=== PATIENT | female | born 1975 | race Hispanic/Latino ===

== ENCOUNTER 2019-03-08 18:47 | Emergency (ER) | payer OTHER ==
[~2019-03-08] VITALS: Ht 170.2 cm; Wt 72.6 kg
[2019-03-08] MEDS ORDERED: NAPROSYN500 MG PO (19:44)
[2019-03-08] MEDS ORDERED: ULTRAM50 MG PO (19:44)
[2019-03-08] MEDS ORDERED: HYDROCODONE/APAP 5MG-325MG TAB ONE (20:07)
[2019-03-08] MEDS ORDERED: HYDROCODONE/APAP 5MG-325MG TAB PO ONE (20:15)
--- NOTE | 2019-03-08 20:39 | Diagnostic Imaging Report ---
X-ray left shoulder 3 views HISTORY: Pain. Swelling COMPARISON: None available. FINDINGS: Bones: No acute displaced fracture. Joints: The joint spaces are well-maintained. Soft tissues: Focal calcification overlying the greater trochanter seen on internal rotation view. Surgical clips project in the left axilla and left mid chest. IMPRESSION: No acute radiographic abnormality. 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 Signed by: Lane Ordoñez DO on 03/08/2019 8:35 PM
== END 2019-03-08 21:03 | disposition home or self-care (01) ==
LOC: FSED 18:47
DX: S43.422A Sprain of left rotator cuff capsule, initial encounter (principal); I89.0 Lymphedema, not elsewhere classified; X50.1XXA Overexertion from prolonged static or awkward postures, initial encounter; Y92.008 Other place in unspecified non-institutional (private) residence as the place of occurrence of the external cause; Z85.3 Personal history of malignant neoplasm of breast
CPT/HCPCS: 99283